=== PATIENT | male | born 1935 | race Caucasian/White ===

== ENCOUNTER → 2017-02-28 | Outpatient (CLI) | payer MEDICARE, BC ==
[~2017-02-28] MED LIST: ALBU.083IS IH; ALBU90OI; ALBU90OI61 INH; ALBUTEROL; ANTIBIOTIC; ASCO500; ASCO500 PO; ASPI81EC; ASPI81EC PO; AZIT250 PO; CHOL10002 PO; CIPR500 PO; CYCL10 PO; DEXA4 PO; ESOM20; FERR325 PO; FINA5 PO; FLUSAL2505; FLUSAL2505 IH; HYDR1TAB94 PO; METCAR750 PO; METPRE4 PO; METPRE4DP PO; MULVITMINF PO; OMEP20ER; OMEP20ER PO; RAMI2.5 PO; STEROID; TAMS.4ER PO; TIOT18; TIOT18 INH
[2017-02-28 16:54] LABS: Influenza A Negative (NEGATIVE); Influenza B Negative (NEGATIVE)
== END | disposition home or self-care (01) ==
LOC: LAB 16:13
DX: R05 Cough (principal); R06.2 Wheezing
CPT/HCPCS: 87804

== ENCOUNTER → 2018-08-04 | Outpatient (CLI) | payer MEDICARE, BC ==
[~2018-08-04] MED LIST changes: +ACET325 PO; +ATROPINE 0.01%-10 ML SL; +ATROPINE SULFATE2 ML SL; +CEFP200 PO; +Complete Senio1 EACH PO; +Culturelle1 CAP PO; +FERSU300 PO; -FLUSAL2505 IH; +FLUT1DIS5 INH; +Feverall650 MG PR; +Flonase 0.05% N16 GM; +Fruity C250 MG PO; +HALO2 PO; +IRON240 MG PO; +LORA2 PO; +OMEPRAZOLE20 MG PO; +ONDA4ODT MM; +PROM12.5S PR; +SANTYL30 GM TOP; +SENN187 PO; +Transderm-Scop1 EACH TD; +VITAMIN D31000 UNI2 PO
[2018-08-04 18:43] LABS: Bilirubin, Urine Neg (Neg); Blood, Urine 5+ (Neg); Glucose Qualitative, Urine Neg (Neg); Ketones, Urine 1+ (Neg); Leukocyte Esterase, Urine 1+ (Neg); Nitrite, Urine Neg (Neg); Protein, Urine 2+ (Neg); Specific Gravity, Urine 1.015 (1.003-1.022); Urobilinogen, Urine NORM (Normal); pH, Urine 6.5 (5.0-8.0)
[2018-08-04 18:56] LABS: Appearance, Urine Cloudy (Clear); Color, Urine Yellow (P-Yellow)
[2018-08-04 18:57] LABS: Bacteria Mod /hpf; Red Blood Cells, Urine TNTC /hpf (0-2); Squamous Epithelial Cells Rare /hpf (Few)
== END | disposition home or self-care (01) ==
LOC: LAB 17:44 → LAB SHORT 17:44
DX: R31.9 Hematuria, unspecified (principal)
CPT/HCPCS: 81001; 87086

== ENCOUNTER 2018-08-20 02:55 | Emergency (ER) | payer MEDICARE, BC ==
[~2018-08-20] VITALS: Ht 172.7 cm; Wt 49.9 kg
[~2018-08-20 02:55] MED LIST changes: -ACET325 PO; -ATROPINE 0.01%-10 ML SL; -ATROPINE SULFATE2 ML SL; -CEFP200 PO; -Complete Senio1 EACH PO; -Culturelle1 CAP PO; -FERSU300 PO; -Feverall650 MG PR; -Flonase 0.05% N16 GM; -Fruity C250 MG PO; -HALO2 PO; -IRON240 MG PO; -LORA2 PO; -OMEPRAZOLE20 MG PO; -ONDA4ODT MM; -PROM12.5S PR; -SANTYL30 GM TOP; -SENN187 PO; -Transderm-Scop1 EACH TD; -VITAMIN D31000 UNI2 PO
== END 2018-08-20 07:27 | disposition left against medical advice (07) ==
LOC: ER 02:55
DX: M25.551 Pain in right hip (principal); Z88.8 Allergy status to other drugs, medicaments and biological substances; Z79.899 Other long term (current) drug therapy; J44.9 Chronic obstructive pulmonary disease, unspecified; Z87.891 Personal history of nicotine dependence
CPT/HCPCS: 99283

== ENCOUNTER 2018-10-14 22:38 | Inpatient (IN) | payer MEDICARE, BC ==
[~2018-10-14] VITALS: Ht 185.4 cm; Wt 44.7 kg
[2018-10-14 23:30] LABS: BASOPHILS ABSOLUTE AUTO 0.05 K/mm3 (0.00-0.23); BASOPHILS PERCENT AUTO 0 % (0-2); EOSINOPHILS PERCENT AUTO 0 % (0-6); Hematocrit 33.2 % (37.0-53.0); Hemoglobin 10.9 g/dL (13.5-17.5); IMMATURE GRAN ABSOLUTE AUTO 0.18 K/mm3 (0.00-0.10); IMMATURE GRAN PERCENT AUTO 1 % (0-1); LYMPHOCYTES ABSOLUTE AUTO 0.61 K/mm3 (0.84-5.20); LYMPHOCYTES PERCENT AUTO 2 % (21-46); MONOCYTES PERCENT AUTO 9 % (4-13); Mean Corpuscular HGB 34.2 pg (26.0-34.0); Mean Corpuscular HGB Conc 32.8 g/dL (31.5-36.5); Mean Corpuscular Volume 104 fL (80-100); Mean Platelet Volume 10.4 fL (9.1-12.4); NEUTROPHILS ABSOLUTE AUTO 22.16 K/mm3 (1.96-9.15); NEUTROPHILS PERCENT AUTO 88 % (41-73); Platelet Count 335 K/mm3 (150-400); RDW Coefficient Variation 14.6 % (11.7-14.2); RDW Standard Deviation 55.5 fL (35.1-46.3); Red Blood Cell Count 3.19 M/mm3 (4.30-5.90)
[2018-10-14 23:44] LABS: Alanine Aminotransfer (ALT/SGP 27 U/L (12-78); Albumin, Blood 3.5 g/dL (3.4-5.0); Albumin/Globulin Ratio 0.9 (0.8-1.8); Alk Phos 62 U/L (50-136); Anion Gap 9 mmol/L (6-16); Aspartate Aminotrans (AST/SGOT 32 U/L (12-37); Bilirubin, Total 0.8 mg/dL (0.1-1.0); Blood Urea Nitrogen 25 mg/dL (8-24); Bun/Creatinine Ratio 30.2 (12.0-20.0); CO2, Blood 32 mmol/L (21-32); Calcium, Blood 9.1 mg/dL (8.5-10.1); Chloride, Blood 103 mmol/L (98-108); Creatinine, Blood 0.83 mg/dL (0.60-1.20); Glomerular Filtration Rate >60 (60-); Glucose, Blood 136 mg/dL (70-99); Potassium, Blood 4.2 mmol/L (3.5-5.5); Sodium, Blood 144 mmol/L (136-145); Total Protein, Blood 7.5 g/dL (6.4-8.2)
[2018-10-15 01:27] LABS: Source, Urine Clean Catch
[2018-10-15 01:30] LABS: Appearance, Urine Clear (Clear); Bilirubin, Urine Neg (Neg); Blood, Urine 5+ (Neg); Color, Urine Amber (P-Yellow); Glucose Qualitative, Urine Neg (Neg); Ketones, Urine 3+ (Neg); Leukocyte Esterase, Urine 1+ (Neg); Nitrite, Urine Neg (Neg); Protein, Urine 3+ (Neg); Specific Gravity, Urine 1.025 (1.003-1.022); Urobilinogen, Urine NORM (Normal)
[2018-10-15 01:38] LABS: Bacteria Mod /hpf; Red Blood Cells, Urine 50-100 /hpf (0-2); Squamous Epithelial Cells Few /hpf (Few)
[2018-10-15 01:39] LABS: Amorphous Light (0-Heavy)
[2018-10-15 04:42] LABS: Alanine Aminotransfer (ALT/SGP 21 U/L (12-78); Albumin, Blood 2.8 g/dL (3.4-5.0); Albumin/Globulin Ratio 0.8 (0.8-1.8); Alk Phos 49 U/L (50-136); Anion Gap 7 mmol/L (6-16); Aspartate Aminotrans (AST/SGOT 22 U/L (12-37); Bilirubin, Total 0.6 mg/dL (0.1-1.0); Blood Urea Nitrogen 23 mg/dL (8-24); Bun/Creatinine Ratio 31.7 (12.0-20.0); CO2, Blood 30 mmol/L (21-32); Calcium, Blood 7.8 mg/dL (8.5-10.1); Chloride, Blood 108 mmol/L (98-108); Creatinine, Blood 0.73 mg/dL (0.60-1.20); Globulin, Blood 3.3 g/dL (2.2-4.0); Glomerular Filtration Rate >60 (60-); Glucose, Blood 133 mg/dL (70-99); Potassium, Blood 3.9 mmol/L (3.5-5.5); Sodium, Blood 145 mmol/L (136-145); Total Protein, Blood 6.1 g/dL (6.4-8.2)
[2018-10-15 04:46] LABS: Prealbumin, Blood 7.6 mg/dL (20.0-40.0)
[2018-10-15 04:48] LABS: Percent Saturation 7.6 % (20.0-50.0)
[2018-10-16 04:47] LABS: Hematocrit 31.1 % (37.0-53.0); Hemoglobin 9.9 g/dL (13.5-17.5); Mean Corpuscular HGB 33.3 pg (26.0-34.0); Mean Corpuscular HGB Conc 31.8 g/dL (31.5-36.5); Mean Corpuscular Volume 105 fL (80-100); Mean Platelet Volume 10.2 fL (9.1-12.4); Platelet Count 259 K/mm3 (150-400); RDW Coefficient Variation 14.6 % (11.7-14.2); RDW Standard Deviation 56.7 fL (35.1-46.3); Red Blood Cell Count 2.97 M/mm3 (4.30-5.90)
[2018-10-16 05:02] LABS: Anion Gap 5 mmol/L (6-16); Blood Urea Nitrogen 13 mg/dL (8-24); Bun/Creatinine Ratio 26.9 (12.0-20.0); CO2, Blood 30 mmol/L (21-32); Calcium, Blood 8.2 mg/dL (8.5-10.1); Chloride, Blood 108 mmol/L (98-108); Creatinine, Blood 0.48 mg/dL (0.60-1.20); Glomerular Filtration Rate >60 (60-); Glucose, Blood 106 mg/dL (70-99); Potassium, Blood 3.5 mmol/L (3.5-5.5); Sodium, Blood 143 mmol/L (136-145)
[2018-10-16] MEDS ORDERED: ACET325 PO (14:39)
[2018-10-16] MEDS ORDERED: CEFP200 PO (14:40)
[2018-10-16] MEDS ORDERED: Culturelle1 CAP PO (14:41)
[2018-10-16] MEDS ORDERED: FERSU300 PO (14:41)
[2018-10-16] MEDS ORDERED: SENN187 PO (14:42)
[2018-10-16] MEDS ORDERED: SANTYL30 GM TOP (16:20)
== END 2018-10-16 17:46 | disposition home health service (06) | DRG 872 ==
LOC: ER 22:38 → MEDS 10-15 02:44
PROVIDERS: Emergency Medicine; Family Medicine; ADMIT Hospitalist
DX: A41.9 Sepsis, unspecified organism (principal); E44.1 Mild protein-calorie malnutrition; T74.01XA Adult neglect or abandonment, confirmed, initial encounter; R65.20 Severe sepsis without septic shock; J43.9 Emphysema, unspecified; F03.90 Unspecified dementia, unspecified severity, without behavioral disturbance, psychotic disturbance, mood disturbance, and anxiety; Z99.81 Dependence on supplemental oxygen; I10 Essential (primary) hypertension; Z87.891 Personal history of nicotine dependence; E86.0 Dehydration; D53.9 Nutritional anemia, unspecified
CPT/HCPCS: 36415; 71046; 80048; 80053; 81001; 82607; 82728; 82746; 83540; 83550; 83605; 84134; 84145; 84484; 85025; 85027; 87040; 87086; 93005; 93010; 94761; 96365; 96367; 97116; 97162; 97165; 97530; 99285-25; A9270; J0456; J0696; J1650; J2060; J7030; J7050

== ENCOUNTER 2018-10-17 19:50 | Observation (INO) | payer OTHER, MEDICARE, BC ==
[~2018-10-17] VITALS: Ht 167.6 cm; Wt 70.8 kg
[~2018-10-17 19:50] MED LIST changes: +ACET325 PO; +CEFP200 PO; +Culturelle1 CAP PO; +FERSU300 PO; +SANTYL30 GM TOP; +SENN187 PO
[2018-10-17 21:26] LABS: BASOPHILS ABSOLUTE AUTO 0.03 K/mm3 (0.00-0.23); BASOPHILS PERCENT AUTO 0 % (0-2); EOSINOPHILS ABSOLUTE AUTO 0.37 K/mm3 (0.00-0.68); EOSINOPHILS PERCENT AUTO 3 % (0-6); Hematocrit 28.8 % (37.0-53.0); Hemoglobin 9.3 g/dL (13.5-17.5); IMMATURE GRAN ABSOLUTE AUTO 0.04 K/mm3 (0.00-0.10); IMMATURE GRAN PERCENT AUTO 0 % (0-1); LYMPHOCYTES ABSOLUTE AUTO 1.41 K/mm3 (0.84-5.20); LYMPHOCYTES PERCENT AUTO 12 % (21-46); MONOCYTES ABSOLUTE AUTO 0.98 K/mm3 (0.16-1.47); MONOCYTES PERCENT AUTO 8 % (4-13); Mean Corpuscular HGB 34.4 pg (26.0-34.0); Mean Corpuscular HGB Conc 32.3 g/dL (31.5-36.5); Mean Corpuscular Volume 107 fL (80-100); Mean Platelet Volume 10.2 fL (9.1-12.4); NEUTROPHILS ABSOLUTE AUTO 8.92 K/mm3 (1.96-9.15); NEUTROPHILS PERCENT AUTO 76 % (41-73); Platelet Count 262 K/mm3 (150-400); RDW Coefficient Variation 14.6 % (11.7-14.2); RDW Standard Deviation 57.1 fL (35.1-46.3); White Blood Cell Count 11.75 K/mm3 (4.00-11.30)
[2018-10-17 21:40] LABS: Alanine Aminotransfer (ALT/SGP 26 U/L (12-78); Albumin, Blood 2.8 g/dL (3.4-5.0); Albumin/Globulin Ratio 0.8 (0.8-1.8); Alk Phos 58 U/L (50-136); Anion Gap 7 mmol/L (6-16); Aspartate Aminotrans (AST/SGOT 25 U/L (12-37); Bilirubin, Total 0.3 mg/dL (0.1-1.0); Blood Urea Nitrogen 10 mg/dL (8-24); Bun/Creatinine Ratio 18.2 (12.0-20.0); CO2, Blood 32 mmol/L (21-32); Calcium, Blood 8.2 mg/dL (8.5-10.1); Chloride, Blood 106 mmol/L (98-108); Creatinine, Blood 0.55 mg/dL (0.60-1.20); Globulin, Blood 3.3 g/dL (2.2-4.0); Glomerular Filtration Rate >60 (60-); Glucose, Blood 90 mg/dL (70-99); Potassium, Blood 3.5 mmol/L (3.5-5.5); Sodium, Blood 145 mmol/L (136-145); Total Protein, Blood 6.1 g/dL (6.4-8.2); Troponin I <0.015 ng/mL (0.000-0.040)
[2018-10-17 23:47] LABS: Source, Urine Clean Catch
[2018-10-17 23:52] LABS: Bilirubin, Urine Neg (Neg); Blood, Urine 2+ (Neg); Glucose Qualitative, Urine Neg (Neg); Ketones, Urine 4+ (Neg); Leukocyte Esterase, Urine Neg (Neg); Nitrite, Urine Neg (Neg); Protein, Urine Neg (Neg); Specific Gravity, Urine 1.015 (1.003-1.022); Urobilinogen, Urine NORM (Normal)
[2018-10-17 23:57] LABS: Appearance, Urine Clear (Clear); Color, Urine Yellow (P-Yellow)
[2018-10-17 23:58] LABS: Bacteria Mod /hpf; Mucus Light ({null, 0-Heavy}); Squamous Epithelial Cells Not Seen /hpf (Few)
[2018-10-18 05:13] LABS: BASOPHILS ABSOLUTE AUTO 0.02 K/mm3 (0.00-0.23); BASOPHILS PERCENT AUTO 0 % (0-2); EOSINOPHILS ABSOLUTE AUTO 0.21 K/mm3 (0.00-0.68); EOSINOPHILS PERCENT AUTO 3 % (0-6); Hematocrit 25.1 % (37.0-53.0); IMMATURE GRAN ABSOLUTE AUTO 0.03 K/mm3 (0.00-0.10); IMMATURE GRAN PERCENT AUTO 0 % (0-1); LYMPHOCYTES ABSOLUTE AUTO 0.91 K/mm3 (0.84-5.20); LYMPHOCYTES PERCENT AUTO 11 % (21-46); MONOCYTES ABSOLUTE AUTO 0.71 K/mm3 (0.16-1.47); MONOCYTES PERCENT AUTO 8 % (4-13); Mean Corpuscular HGB 33.6 pg (26.0-34.0); Mean Corpuscular HGB Conc 31.9 g/dL (31.5-36.5); Mean Corpuscular Volume 106 fL (80-100); Mean Platelet Volume 10.2 fL (9.1-12.4); NEUTROPHILS ABSOLUTE AUTO 6.61 K/mm3 (1.96-9.15); NEUTROPHILS PERCENT AUTO 78 % (41-73); Platelet Count 212 K/mm3 (150-400); RDW Coefficient Variation 14.5 % (11.7-14.2); RDW Standard Deviation 56.4 fL (35.1-46.3); Red Blood Cell Count 2.38 M/mm3 (4.30-5.90); White Blood Cell Count 8.49 K/mm3 (4.00-11.30)
--- NOTE | 2018-10-18 05:15 | NUR ---
SHIFT SUMMARY: PATIENT ARRIVED TO THE UNIT AT 0200 VIA GURNEY, ASSISTED WITH TRANSFER TO THE BED, USING SLIDER SHEET. HE IS ALERT AND ORIENTED TO SELF. HE IS ABLE TO LISTEN AND FOLLOW DIRECTIONS WHEN SPEAKING REAL SLOW AND ASKING PERMISSION. IF YOU ATTEMPT TO DO SOMETHING WITH OUT GETTING HIM TO CLEARLY UNDERSTAND WHAT IS HAPPENING HE TENDS TO GET COMBATIVE AND ANGRY. HE ALLOWED IV PLACEMENT, FLUIDS TO BE ADMINISTERED, LAB TO DRAW. BUT IF YOU GO TO CHANGE HIM, THIS HE DOES NOT LIKE. HE TENDS TO LAY ONLY ON HIS RIGHT SIDE AND DOES NOT LAY ON HIS BACK. HE IS ALWAYS IN POSITION. HE WAS RECENTLY DISCHARGED FROM THE HOSPTIAL TO THE GRANDDAUGHTERS HOME BUT SHE WAS NOT ABLE TO CARE FOR HIM HE WOULD DENY CARE PER MD NOTES. PATIENT ALLOWED STAFF TO TAKE PICTURES OF THE WOUNDS TO THE BILATERAL HIPS, AND ARMS. SEE CHART FOR DETAILS. ASSESSMENT WAS COMPLETED. LUNG SOUNDS ARE DIMINISHED WITH SOME WHEEZES THROUGHOUT. COUGH IS MOIST NON-PRODUCTIVE AT THIS TIME, IV STARTED TO THE LEFT UPPER ARM FOR POTASSIUM INFUSION, THIS WAS STARTED LATE DUE TO COMING TO THE FLOOR LATER THEN EXPECTED. ALSO INFUSING LR WITH AZYTHROMYCIN. ALL WOUNDS WERE DRESSED AND CLEANED. AFTER THAT HE WANTED TO SLEEP AND BE LEFT ALONE. THEREFORE, ALLOWED HIM TO SLEEP LAST COUPLE OF HOURS IN THE NIGHT. NO OTHER CHANGES WERE TO NOTE AT THIS TIME. WILL REPORT TO DAY SHIFT RN.
[2018-10-18 05:44] LABS: Anion Gap 4 mmol/L (6-16); Blood Urea Nitrogen 8 mg/dL (8-24); Bun/Creatinine Ratio 16.1 (12.0-20.0); CO2, Blood 32 mmol/L (21-32); Calcium, Blood 7.8 mg/dL (8.5-10.1); Chloride, Blood 107 mmol/L (98-108); Glomerular Filtration Rate >60 (60-); Glucose, Blood 80 mg/dL (70-99); Potassium, Blood 3.8 mmol/L (3.5-5.5); Sodium, Blood 143 mmol/L (136-145)
--- NOTE | 2018-10-18 09:50 | NUR ---
SPOKE WITH DR. BA AND GIBSON WITH PALLIATIVE CARE. THEY WILL ATTEMPT TO CONTACT FAMILY ABOUT CODE STATUS AND PLAN TODAY.
--- NOTE | 2018-10-18 14:32 | NUR ---
GIBSON Davenport RN TALKING WITH FAMILY AT BEDSIDE.
--- NOTE | 2018-10-18 15:46 | NUR ---
INITIAL [facility] VISIT/THIS ADMISSION PT IS AN 83 YEAR OLD MAN, DISCHARGED FROM THIS FACILITY AFTER STAY FOR TX OF SEPSIS, YESTERDAY. READMITTED JUST AFTER MIDNIGHT THIS AM. HE'S CARED FOR IN HIS HOME BY HIS GRANDDAU, LEEANNE AND ANOTHER FAMILY MEMBER WHEN SHE IS AT WORK. PT HAS HIS EYES CLOSED. HE WILL OPEN THEM AND LISTEN TO ME BUT DID NOT SPEAK OR PARTICIPATE IN THE CONVERSATION WHILE I SPOKE TO HIS GRANDCHILDREN FOR APPROX 20 MINUTES. LEEANNE AND A GRANDSON, SNEHA PRESENT FOR FAMILY MEETING. PT'S MARIANELA HERNANDEZ IS AT WORK UNTIL 6PM AND UNAVAILABLE. MELANIA KNOWN TO ME FROM PULMONARY REHAB. I WOULD NOT HAVE RECOGNIZED HIM FROM MY PRIOR CONTACT WITH HIM 2-3 YEARS AGO. PT IS CURLED UP ON RIGHT SIDE. HE'S CACHECTIC, FRAIL AND HAS A FULL STOKES AND LONG HAIR. HE HAS A FURROWED BROW AND SOMETIMES SQUEEZES HIS EYES CLOSED TIGHTLY. THE ONLY INDICATION OF PAIN NOTED IS HIS POSITION AND THE FURROWING OF HIS BROW. HE IS NOT MOANING, GROANING OR GRUNTING. RESP EVEN & UNLABORED. HE DOES NOT APPEAR RESTLESS/AGITATED AT THIS TIME. IT DOESN'T APPEAR THAT OUR CONVERSATION REGARDING HIS CODE STATUS AND WISHES, GOALS OF CARE, HOSPICE ETC ARE DISTURBING TO HIM. HE IS LYING QUIETLY, LISTENING. FAMILY WOULD LIKE TO CARE FOR HIM IN THE HOME WITH HOSPICE SUPPORT IF POSSIBLE. IF THEY CANNOT MANGE HIS CARE WITH THE ADDED HELP THEY WOULD CONSIDER PLACING HIM IN A GROUP HOME WITH HOSPICE CARE, FOR SAFETY. THEIR PRIMARY CONCERN IS HIS COMFORT AND PEACE OF MIND. AT ISSUE IS PT'S RELUCTANCE TO ALLOW PERSONAL CARE, HYGIENE AND FEEDING AT HOME. WE DISCUSSED PT'S RIGHT TO NOT EAT AND NOT BE FED IF THAT IS WHAT HE DESIRES. FAMILY AT PEACE WITH THIS AND UNDERSTAND THAT HIS QUALITY OF LIFE SINCE HIS HAS BEEN VERY POOR, ESPECIALLY RECENTLY WITH ACCELERATED PROGRESSION OF HIS DEMENTIA AND END STAGE LUNG DISEASE. CM UPDATED ON PLANS FOR D/C AND SHE CAME TO MEET WITH FAMILY TO COORDINATE DC HOME WITH HOSPICE. UPDATE GIVEN TO AND NEW ORDERS OBTAINED AND ENTERED. POLST FORM COMPLETED WITH FOREIGN FOR PT AND DISCUSSED WITH . POLST FORM LEFT AT DOOR FOR DR TO SIGN. WE WILL FAX TO MEDICAL RECORDS ONCE SIGNED. SNEHA AND LEEANNE STATE THEIR MOM IS IN SUPPORT OF HONORING PT'S WISHES. NON OF THEM WANT TO FORCE FEED OR ARTIFICIALLY FEED PT WITH G-TUBE IF HE CONTINUES TO DECLINE PO INTAKE. RN UPDATED ON CHANGES ALSO. CM WORKING WITH FAMILY WHEN I LEFT.
[2018-10-18] MEDS ORDERED: HALO2 PO (18:37)
[2018-10-18] MEDS ORDERED: ATROPINE 0.01%-10 ML SL (18:37)
[2018-10-18] MEDS ORDERED: ONDA4ODT MM (18:38)
[2018-10-18] MEDS ORDERED: LORA2 PO (18:38)
--- NOTE | 2018-10-18 20:06 | NUR ---
1944 PT AND FAMILY GIVEN DISCHARGE INSTRUCTIONS WITH GOOD UNDERSTANDING NOTED. PT CHANGED AND FRESH ATTENDS APPLIED PRIOR TO DISCHARGE. PT DISCHARGED TO CAR PER STAFF AND FAMILY AT SIDE VIA WHEELCHAIR WITH ALL PERSONAL BELONGINGS PLACED PERSONAL BAGS. PT ALERT AND ORIENTED X 1 AND ABLE TO FOLLOW VERY SIMPLE VERBAL COMMANDS. OLD WOUND DRESSINGS REMOVED FROM BILATERAL ARMS (SCABBED OVER AND LEFT OPEN TO AIR).
== END 2018-10-18 19:48 | disposition home or self-care (01) ==
LOC: ER 19:50 → MEDS 19:51
PROVIDERS: Emergency Medicine; Nurse Practitioner Acute Care; ADMIT Hospitalist
DX: F03.91 Unspecified dementia, unspecified severity, with behavioral disturbance (principal); A41.9 Sepsis, unspecified organism; R65.20 Severe sepsis without septic shock; G92 Toxic encephalopathy; L89.220 Pressure ulcer of left hip, unstageable; L89.210 Pressure ulcer of right hip, unstageable; D64.9 Anemia, unspecified; E44.0 Moderate protein-calorie malnutrition; J44.9 Chronic obstructive pulmonary disease, unspecified; R13.10 Dysphagia, unspecified; I10 Essential (primary) hypertension; J96.11 Chronic respiratory failure with hypoxia; Z99.81 Dependence on supplemental oxygen; Z88.8 Allergy status to other drugs, medicaments and biological substances; Z79.899 Other long term (current) drug therapy; W18.30XA Fall on same level, unspecified, initial encounter
CPT/HCPCS: 36415; 71045; 80048; 80053; 81001; 83605; 84145; 84484; 85025; 87086; 93005; 93010; 94640; 94760; 96361; 96365; 96366; 96367; 96368; 96372; 99285-25; G0378; J0456; J0696; J1650; J3480; J7030; J7050; J7120

== ENCOUNTER 2018-11-06 00:36 | Inpatient (IN) | payer MEDICARE, BC ==
[~2018-11-06] VITALS: Ht 170.2 cm; Wt 43.1 kg
[~2018-11-06 00:36] MED LIST changes: +ATROPINE 0.01%-10 ML SL; +HALO2 PO; +LORA2 PO; +ONDA4ODT MM
[2018-11-06 01:58] LABS: BASOPHILS ABSOLUTE AUTO 0.02 K/mm3 (0.00-0.23); BASOPHILS PERCENT AUTO 0 % (0-2); EOSINOPHILS ABSOLUTE AUTO 0.01 K/mm3 (0.00-0.68); EOSINOPHILS PERCENT AUTO 0 % (0-6); Hematocrit 33.6 % (37.0-53.0); Hemoglobin 10.8 g/dL (13.5-17.5); IMMATURE GRAN ABSOLUTE AUTO 0.14 K/mm3 (0.00-0.10); IMMATURE GRAN PERCENT AUTO 1 % (0-1); LYMPHOCYTES PERCENT AUTO 2 % (21-46); MONOCYTES ABSOLUTE AUTO 1.07 K/mm3 (0.16-1.47); MONOCYTES PERCENT AUTO 5 % (4-13); Mean Corpuscular HGB 34.4 pg (26.0-34.0); Mean Corpuscular HGB Conc 32.1 g/dL (31.5-36.5); Mean Corpuscular Volume 107 fL (80-100); Mean Platelet Volume 10.3 fL (9.1-12.4); NEUTROPHILS ABSOLUTE AUTO 18.98 K/mm3 (1.96-9.15); NEUTROPHILS PERCENT AUTO 92 % (41-73); NRBC ABSOLUTE 0.02 K/mm3 (0.00-0.02); NRBC Auto 0.1 /100 WBC (0.0-0.2); Platelet Count 345 K/mm3 (150-400); RDW Coefficient Variation 15.1 % (11.7-14.2); RDW Standard Deviation 58.6 fL (35.1-46.3); Red Blood Cell Count 3.14 M/mm3 (4.30-5.90); White Blood Cell Count 20.72 K/mm3 (4.00-11.30)
[2018-11-06 02:19] LABS: Alanine Aminotransfer (ALT/SGP 34 U/L (12-78); Albumin, Blood 2.7 g/dL (3.4-5.0); Albumin/Globulin Ratio 0.6 (0.8-1.8); Alk Phos 81 U/L (50-136); Anion Gap 10 mmol/L (6-16); Aspartate Aminotrans (AST/SGOT 36 U/L (12-37); Bilirubin, Total 0.9 mg/dL (0.1-1.0); Blood Urea Nitrogen 25 mg/dL (8-24); Bun/Creatinine Ratio 28.9 (12.0-20.0); CO2, Blood 31 mmol/L (21-32); Calcium, Blood 9.1 mg/dL (8.5-10.1); Chloride, Blood 99 mmol/L (98-108); Creatinine, Blood 0.87 mg/dL (0.60-1.20); Globulin, Blood 4.7 g/dL (2.2-4.0); Glomerular Filtration Rate >60 (60-); Glucose, Blood 177 mg/dL (70-99); Magnesium, Blood 2.6 mg/dL (1.6-2.4); Potassium, Blood 4.2 mmol/L (3.5-5.5); Sodium, Blood 140 mmol/L (136-145); Total Protein, Blood 7.4 g/dL (6.4-8.2); Troponin I 0.033 ng/mL (0.000-0.040)
[2018-11-06 05:23] LABS: BASOPHILS ABSOLUTE AUTO 0.02 K/mm3 (0.00-0.23); BASOPHILS PERCENT AUTO 0 % (0-2); EOSINOPHILS PERCENT AUTO 0 % (0-6); Hematocrit 25.7 % (37.0-53.0); Hemoglobin 8.3 g/dL (13.5-17.5); IMMATURE GRAN ABSOLUTE AUTO 0.12 K/mm3 (0.00-0.10); IMMATURE GRAN PERCENT AUTO 1 % (0-1); LYMPHOCYTES ABSOLUTE AUTO 0.43 K/mm3 (0.84-5.20); LYMPHOCYTES PERCENT AUTO 2 % (21-46); MONOCYTES ABSOLUTE AUTO 1.51 K/mm3 (0.16-1.47); MONOCYTES PERCENT AUTO 7 % (4-13); Mean Corpuscular HGB Conc 32.3 g/dL (31.5-36.5); Mean Corpuscular Volume 105 fL (80-100); Mean Platelet Volume 10.7 fL (9.1-12.4); NEUTROPHILS ABSOLUTE AUTO 18.65 K/mm3 (1.96-9.15); NEUTROPHILS PERCENT AUTO 90 % (41-73); Platelet Count 274 K/mm3 (150-400); RDW Coefficient Variation 15.2 % (11.7-14.2); Red Blood Cell Count 2.44 M/mm3 (4.30-5.90); White Blood Cell Count 20.73 K/mm3 (4.00-11.30)
[2018-11-06 05:46] LABS: Anion Gap 7 mmol/L (6-16); Blood Urea Nitrogen 27 mg/dL (8-24); CO2, Blood 31 mmol/L (21-32); Calcium, Blood 8.3 mg/dL (8.5-10.1); Chloride, Blood 104 mmol/L (98-108); Creatinine, Blood 0.77 mg/dL (0.60-1.20); Glomerular Filtration Rate >60 (60-); Glucose, Blood 121 mg/dL (70-99); Potassium, Blood 3.7 mmol/L (3.5-5.5); Sodium, Blood 142 mmol/L (136-145)
--- NOTE | 2018-11-06 10:27 | NUR ---
INITIAL PAL CARE VISIT - MEDICAL CLAIRE HERNANDEZMARIANELA [phone], PRIMARY CG WHERE PT LIVES IS LEEANNE HUERTA - [phone]. I HAVE LEFT VM MESSAGES FOR BOTH WITH REQUEST FOR RETURN CALL TO DISCUSS GOALS OF CARE. PT'S RN TO PAGE ME IF ANY FAMILY ARRIVE IN ICU#15 TO SEE PT. PLEASE SEE EXTENSIVE PAL CARE NOTE FROM PT'S LAST ADMISSION. THIS IS PT'S THIRD ADMISSION IN THE LAST 3-4 WEEKS. AFTER FIRST D/C IN SEPTEMBER HE RETURNED TO ER IN LESS THAN 24 HOURS BECAUSE "FAMILY COULD NOT CARE FOR HIM DUE TO PT'S REFUSAL TO ALLOW THEM TO CARE FOR HIM". AT MOST RECENT D/C ON 10/18/18, PT HAD PLANS FOR HOME CARE WITH GRAND HERNANDEZ, HOSPICE CARE AND IF LEEANNE WAS UNABLE TO MANAGE HOME CARE FAMILY STATED THEY WOULD CONSIDER PLACEMENT OF PT IN LTC FACILITY FOR EOL CARE. PT'S KPS SCORE IS CURRENTLY 20-30%. HE WOULD BE APPROPRIATE FOR COMFORT CARE AND HOSPICE CARE FOR END STAGE COPD AND DEMENTIA. HE RETURNED TO HOSPITAL TODAY AFTER ANOTHER FALL AND MORE SKIN TEARS INCURRED AT HOME. PRIMARY CG IS LEEANNE WHO WORKS. LEEANNE'S SO HELPS WHEN SHE IS WORKING PER LEEANNE ON LAST ADMISSION. I AM UNCERTAIN IF OTHER FAMILY MEMBERS HAVE ASSISTED OR ARE ABLE/WILLING TO ASSIST IN THE HOME. I CONTACTED [facility] WHO STATES THAT PT WAS A NONADMIT TO HOSPICE ON 10/22/18 PER FAMILY CHOICE. THEY TOLD HOSPICE STAFF THEY WERE NOT READY FOR HOSPICE AND PREFERRED FOR WOUND CARE, ETC, HOWEVER, PT WAS NEVER ADMITTED TO HH EITHER. PT'S DEANNA AND GRANDSON COMPLETED A POLST FOR PT BASED ON HIS PREVIOUSLY STATED WISHES ON THE LAST ADMISSION. THIS IS IN PT'S CHART AND STATES DNR/DNI, COMFORT MEASURES ONLY. PT ASSESSED AFTER HE WAS SETTLED INTO HIS ICU ROOM. HE IS QUIET, UNABLE TO SAY WHERE HE IS BUT KNOWS THAT WE ARE NOT ON THE ARCE. HE IS NONAMBULATORY DUE TO WEAKNESS AND EXTREMELY POOR BALANCE AND STRENGTH. HE IS CACHECTIC WITH MULTPLE SKIN TEARS AND WOUNDS. HE HAS LONG HAIR AND STOKES. FAMILY REPORT HE HAS NOT BEEN AMBULATORY FOR DAYS OR HAD PO INTAKE FOR DAYS. ON HIS LAST ADMISSION ST EVALUATED AND FOUND WITH IMPAIRED SWALLOW AND INABILTIY TO FOLLOW INSTRUCTIONS FOR SAFE SWALLOW. T/C TO UPDATE AMARIS GONZALEZ ON ALL OF THE ABOVE AND PLAN TO SPEAK WITH FAMILY TO CLARIFY GOALS AND PLAN OF CARE FOR PT'S END STAGE PROCESSES.
--- NOTE | 2018-11-06 11:34 | NUR ---
ADMIT NOTE PT REPORT RECEIVED FROM ER. PT ARRIVED VIA GURNEY AT @1000. PT ALERT, PALE AND SLEEPY. TRANSFERED TO NEW BED WITH SLIDER SHEET WITH 4 ASSIST. PT TOLERATED WELL. PT HANDS/LEGS DUSKY AND COLD. UNABLE TO OBTAIN A PULSE OX ON PT FINGERS. PLACED A FOREHEAD PROBE. MEASURED 100% ON 2L. CALLED GIBSON PEREZ IN PALATIVE CARE. LET HER KNOW THAT HE HAD RETURNED. PLACED A WARM BALNKET WHICH PT EXPRESSED APPRECIATION FOR. SR ON MONITOR. BP STABLE. IV ANTIBIOTICS STARTED PER ORDER. 1 IV IN RIGHT AC. STARTED WITH VANCOMYCIN THEN FLAGYL TO FOLLOW. CHARLINE CRYSTAL.
--- NOTE | 2018-11-06 13:08 | NUR ---
LOW BP PT BP DROPPED TO SBP 70'S. GIBSON PEREZ WAS HERE. SHE STATED SHE WOULD RETRY CALLING HIS DAUGHTER. CALLED DR GARY. ORDER FOR NS BOLUS 500ML RECEIVED. IVF RATE INCREASED TO 500 ML/HR. CONTINUE POT.
--- NOTE | 2018-11-06 15:24 | NUR ---
Pt's granddaughter, Gifty has arrived. Time spent updating her on Al's current status and discussing goals of care. RN also present and both of us provided support to Gifty. Her mom is on the way in and I will meet with both of them to discuss comfort care and answer their questions. Gifty is tearful and aware of pt's poor prognosis. Will return shortly when Daylin arrives.
--- NOTE | 2018-11-06 17:17 | NUR ---
NEARLY TWO HOURS SPENT TALKING WITH GRAND LEEANNE HERNANDEZ AND MARIANELA HERNANDEZ WHO HAVE ARRIVED. NEITHER ONE LISTENED TO THE VOICE MAIL MESSAGES I LEFT EARLIER. LEEANNE WAS HERE IN THE ER WITH PT UNITL VERY LATE AND MARIANELA HERNANDEZ STATES SHE'S BEEN AT WORK AT DOESN'T HAVE HER PHONE AT WORK. MARIANELA SMELLS OF ALCOHOL. DEANNA IS TEARFUL AND STRUGGLING WITH ANY DECISION TO MAKE PT COMFORT CARE AND MARY APPEARS UNABLE TO CONTRIBUTE TO THE DECISION MAKING IN ANY WAY. AFTER MANY CONVERSATIONS AND QUESTIONS ANSWERED BOTH STATE THEY WANT TO WAIT UNTIL SNEHA, PT'S GRANDSON IS AVAILABLE TO DISCUSS CARE PLAN WITH. MARIANELA AND LEEANNE CONFIRM THAT THEY DO NOT WANT CPR OR INTUBATION IF PT'S HEART/LUNGS FAIL BUT THEY WANT TO CONTINUE WITH IV FLUIDS AND IV ANTIBIOTICS AT THIS TIME. IF THEY ARE UNABLE TO REACH SNEHA THEY STATE THEY WILL COME TO A DECISION ON THEIR OWN. 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 HIS KPS SCORE IS APPROX 20% AT THIS TIME. HE HAS HAD DIFFICULTY SWALLOWING AND EATING FOR MONTHS, INCLUDING DIFFICULTY HANDLING HIS OWN SECRETIONS AT HOME PER GDAU. GDAU STATES THEY DID NOT DECLINE HOSPICE OR HH SERVICES BUT HOSPICE AGENCY SUGESSTED HH INSTEAD OF HOSPICE AND THEN COULD NOT SCHEDULE HIM. THEY FELT THEY WERE WAITING FOR THREE WEEKS FOR HELP THAT WAS PLANNED BUT DID NOT COME. [facility] CLEARLY NEEDS SUPPORT AND ASSIST FROM SALES AND SERVICE ADVISOR, TARA, RANGE MASTER IF PT IS ABLE TO RETURN HOME FOR EOL CARE. [facility] IS AWARE THAT PT MAY DECLINE FURTHER AND NOT BE ABLE TO RETURN HOME. ENCOURAGED FAMILY TO BE PRESENT FOR PT. HE IS INTERACTIVE IN MANY WAYS STILL. IF YOU HOLD HIS HAND, HE SQUEEZES AND HOLDS BACK. HE FOLLOWS VOICES WITH HIS EYES INTERMITTENTLY, RECOGNIZED HIS GRANDDAU AND ASKED WHEN HE WAS GOING HOME. HE DRIFTS OFF TO SLEEP BUT ROUSES EASILY. FINGER TIPS ARE MOTTLED AND FEET ARE ALSO DUSKY. BP FINALLY WNL THIS VASU BUT HAD BEEN RUNNING SYSTOLIC IN THE 70'S ALL AFTERNOON, EVEN WITH FLUID BOLUS OF 500 ML. PLAN TO F/U FIRST THING IN THE AM. FAMILY KNOWS IF A DECISION IS MADE TO PLACE PT ON COMFORT CARE THEY CAN LET THEIR RN KNOW AND SHE WILL NOTIFY . PT CONTINUES TO APPEAR COMFORTABLE, EVEN UNLABORED BREATHING WITH O2 ON, NO DISTRESS OR AGITATION NOTED TODAY.
--- NOTE | 2018-11-06 17:38 | NUR ---
Spiritual Care intial note: No family in room when visit occurred. RN was present with me at bedside. Mr. Mccord says little. He denies pain and appears comfortable. Assured pt of excellent care and attention. I will remain available to pt and family.
--- NOTE | 2018-11-06 17:50 | NUR ---
EVENINGNOTE PT RESTING QUIETLY.HE OPENS HIS EYES AND ANSWERS OCCSIONAL QUESTIONS. HE WILL WAVE AT TIMES. FINGERS COLD AND CYANOTIC. LEGS MOTTLED FROM TOES TO KNEES. SBP 70-104 MMHG. HR STABLE SR 70'S. PLACED AN EGG CRATE ON BED PRIOR TO TRANSFER FROM ER FOR PT COMFORT. HE MOANS AND CRIES OUT WHEN REPOSITIONED. WOUND PHOTOTS TAKEN AND PLACED IN HIS CHART. EXTENSIVE TALKS WITH GRAND DAUGHTER AND PT DAUGHTER HAVE TAKEN PLACE AROUND COMFORT CARE. NO FINAL DECISION HAS BEEN MADE CONCERNING COMFORT CARE. PT IS AN ACTIVE DNR STATUS. PURPLE WRIST BAND IS IN PLACE. CONTINUE POT.
--- NOTE | 2018-11-06 18:58 | NUR ---
WOUND CARE CHANGED PINK FOAM DRESSINGS TO BILATERAL HIPS AFTER TAKING DOCUMENTATION PHOTOS. DRESSING DATED AND TIMED. CONTINUE POT.
--- NOTE | 2018-11-06 20:00 | NUR ---
RECEIVED HAND OFF FROM Jim GARCIA, RN USING SBAR. LYING IN SEMI FOWLRES WITH EYES CLOSED. DAUGHTER, GRANDDAUGHTER, AND GRANDSON AT BEDSIDE. NURSING SPENT OVER AN HOUR AT BEDSIDE ANSWERING QUESTIONS FROM FAMILY. TUNG INFOMRED NURSING THAT PT WAS SENT HOME 6 WEEKS AGO WITH HOSPICE. ERYN, WHO IS PRIMARY BRICK TESTER STATED THAT HOSPICE NURSE WHO DID ADMIT ASSESSMENT STATED THAT PT DID NOT QUALIFY FOR HOSPICE AND THAT AN APPOINTMENT WOULD NEED TO BE MADE WITH A DR FOR HIM TO BE QUALIFIED AND A PHYSICIAN WOULD THEN HAVE TO REFER HIM FOR HOME HEALTH CARE. SHE STATED THAT HIS APPT WITH THE MD IS TOMORROW. SHE THEN MADE THE STATMENT, "I DON'T THINK HE IS GOING TO MAKE THAT APPOINTMENT." NURSING VOICED THAT HE WAS PROBABLY NOT. ERYN ALSO STATED THAT SHE FELT ABANDONEND, IF SHE WAS TRYING AND TRYING TO CARE FOR HIM, BUT NOT KNOWING IF SHE WAS DOING THE RIGHT THING. WHILE DISCUSSING PT'S WOUNDS BILATERALLY ON HIS HIPS, WHEN HE WAS DISCHARGED 2 WEEKS AGO HE WAS PRESCRIBED SANTYL. ERYN HAS BEEN APPLYING SANTYL TO THE ESCHAR BILATERALLY, BUT WAS TOLD IN THE ER TO STOP, THAT SHE WAS CAUSING HIM HARM. SHE WAS VERY UPSET ABOUT THIS BECAUSE SHE WAS FOLLOWING DIRECTIONS GIVEN TO HER BY D/C RN. SHE VOICED HER FRUSTRATIONS ABOUT NOT KNOWING WHAT IS BEST FOR PT. NURSING REVEIWED PT'S CONDITION AND HIS OUTLOOK WITH FAMILY. THEY ASKED IF HE WOULD BE ABLE TO GO HOME AND CONTINUE HIS JOURNEY, WHETHER IT WAS TO BE CARED FOR BY HOME HEALTH OR HOSPICE. GRANDSON ASKED IF HE COULD PASS PEACFULLY AT HOME IN HIS OWN BED. NURSING STATED THAT IS ALWAYS AN OPTION FOR THE PT TO COMPLETE HIS JOURNEY AT HOME SURROUNDED BY HIS LOVED ONES. FAMILY VERBALIZES UNDERSTANDING AND STATED THAT THEY WILL MAKE THEIR FINAL DECSION TOMORROW AFTER SEEING HOW HE RESPONDES TO TREATMENT TONIGHT. SHIFT ASSESSMENT IN PROGRESS. SAFETY MEASURES IN PLACE. WILL CONTINUE TO MONITOR.
[2018-11-07 03:26] LABS: BASOPHILS ABSOLUTE AUTO 0.01 K/mm3 (0.00-0.23); BASOPHILS PERCENT AUTO 0 % (0-2); EOSINOPHILS ABSOLUTE AUTO 0.09 K/mm3 (0.00-0.68); EOSINOPHILS PERCENT AUTO 1 % (0-6); Hematocrit 25.2 % (37.0-53.0); Hemoglobin 7.9 g/dL (13.5-17.5); IMMATURE GRAN ABSOLUTE AUTO 0.06 K/mm3 (0.00-0.10); IMMATURE GRAN PERCENT AUTO 0 % (0-1); LYMPHOCYTES ABSOLUTE AUTO 0.97 K/mm3 (0.84-5.20); LYMPHOCYTES PERCENT AUTO 7 % (21-46); MONOCYTES ABSOLUTE AUTO 0.91 K/mm3 (0.16-1.47); MONOCYTES PERCENT AUTO 7 % (4-13); Mean Corpuscular HGB 34.3 pg (26.0-34.0); Mean Corpuscular HGB Conc 31.3 g/dL (31.5-36.5); Mean Platelet Volume 10.5 fL (9.1-12.4); NEUTROPHILS ABSOLUTE AUTO 11.43 K/mm3 (1.96-9.15); NEUTROPHILS PERCENT AUTO 85 % (41-73); Platelet Count 256 K/mm3 (150-400); RDW Coefficient Variation 15.4 % (11.7-14.2); RDW Standard Deviation 61.6 fL (35.1-46.3); White Blood Cell Count 13.47 K/mm3 (4.00-11.30)
[2018-11-07 03:27] LABS: Mean Corpuscular Volume 110 fL (80-100)
[2018-11-07 03:43] LABS: Anion Gap 8 mmol/L (6-16); Blood Urea Nitrogen 20 mg/dL (8-24); Bun/Creatinine Ratio 35.3 (12.0-20.0); CO2, Blood 27 mmol/L (21-32); Calcium, Blood 7.9 mg/dL (8.5-10.1); Chloride, Blood 111 mmol/L (98-108); Creatinine, Blood 0.57 mg/dL (0.60-1.20); Glomerular Filtration Rate >60 (60-); Glucose, Blood 73 mg/dL (70-99); Phosphorus, Blood 2.3 mg/dL (2.5-4.9); Potassium, Blood 3.1 mmol/L (3.5-5.5); Sodium, Blood 146 mmol/L (136-145)
--- NOTE | 2018-11-07 06:46 | NUR ---
SHIFT SUMMARY LYING IN SEMI FOWLERS WITH EYES CLOSED. HAD BEEN DRY SINCE START OF SHIFT. WAS ABLE TO SATURATE DIAPER X1. LINEN AND GOWN CHANGE COMPLETED. BECAME VERY BELIGERANT AND COMBATIVE WHEN PERFORMING KIM CARE. KVO TO RIGHT FA PIV, TOLERATING WELL. REPOSITIONED FOR COMFORT. DENIES FURTHER NEEDS OR WANTS AT THIS TIME. SAFETY MEASURES IN PLACE. WILL GIVE HAND OFF TO ONCIOMING SHIFT USING SBAR.
--- NOTE | 2018-11-07 10:01 | NUR ---
ASSUMED CARE: REPORT RECEIVED FROM ZAID Lam RN. ASSUMED CARE OF THIS PT AT APPROX 0700. ON ASSESSMENT, THE PT IS RESTING QUIETLY. HE IS DIFFICULT TO WAKE AT TIMES & FOLLOWS COMMANDS ONLY INTERMITTENTLY WHEN AWAKE. HE DOES BECOME ANGRY W/ ADLs OR CARE BEING PERFORMED, SHAKING HIS FIST AT STAFF MEMBERS & USING PROFANITIES. PT ON 8L OXYMIZER W/ O2 SATS > 92%. MONITOR SHOWS SR W/ HR 70s, BP STABLE. PALLIATIVE CARE IS INVOLVED W/ THIS PT's CARE, FAMILY IS CONSIDERING POSSIBLE COMFORT CARE/ HOSPICE. WILL CONTINUE TO MONITOR & UPDATE NEEDED.
--- NOTE | 2018-11-07 10:14 | NUR ---
Pal care visit: Reviewed EMR. Case conferenced with pt's RN and Nsh Teacher, Diamond. No family in room during my visit. I have left VM with pt's Gifty becerril, with request for return call. Al lying supine with hob elevated. Forehead biox sensor in place. BP stable now. Respirations slightly labored with mouth breathing. O2 on via nc. Extremeties sl cool to touch but warmer than yesterday. RN reports pt with some agitation and shaking of his fist at her when she attempted to change his wet attends this am. Currently he is sleeping and did not wake to voice or tactile stimuli. He cont to appear fairly comfortable with no nonverbal indicators of grimacing, frowning, groaning or grunting noted. RN to page me if family arrives to visit. They indicated to staff yesterday pm that they would like to take pt home with hospice if possible. I need to confirm that with family and start planning with CM/Hospice if that is the case. Updated hospice care transitions coordinator of above.
--- NOTE | 2018-11-07 17:13 | NUR ---
SECOND PHONE CALL TO FAMILY TODAY TO FOLLOW UP ON GOALS/PLAN OF CARE DECIDED UPON. REACHED VENICE FALLON WHO IS ON HER WAY IN. AFTER SPEAKING WITH DR AND RN, GAVE LEEANNE AN UPDATE ON PT'S STATUS. HE IS STABLE BUT STILL EOL/TERMINAL. VENICE STATES FAMILY WOULD LIKE COMFORT CARE INITIATED AND HOSPICE CARE AT HOME IF IT IS POSSIBLE TO TRANSFER PT BACK HOME. PT WOULD NEED A SAME DAY EVAL/ADMIT TO HOSPICE AND GURNEY TRANSPORT HOME IF HE REMAINS STABLE FOR TRANSFER HOME. DISCUSSED PROBABLE DEHYDRATION AND FURTHER RESPIRATORY DECLINE WITH GRANDDAUGHTER. PT PERKED UP WITH LEEANNE'S VISIT AND ASKED FOR WATER AND SOMETHING TO EAT. I GAVE LEEANNE ICE CHIPS TO GIVE HIM AND HE WAS BROUGHT VANILLA YOGURT. GRANDDAUGHTER WAS INSTRUCTED THAT PT CAN EAT DRINK WHAT HE LIKES IF HE IS AWAKE AND REQUESTING BUT HOB MUST BE UP AND CAUTIONED THAT WITH BEST OF PRECAUTIONS HE WILL MOST LIKELY ASPIRATE SOME FOOD, FLUIDS, SECRETIONS FROM HERE ON OUT. PT HAS O2 ON WITH MAXIMIZER IN PLACE. HE DOES NOT APPEAR DYSPNIC OR IN DISTRESS. DISCOMFORT WITH SWALLOWING NOTED. DISCUSSED MOVE TO MEDICAL FLOOR WITH LEEANNE. SHE IS WORKING TOMORROW BUT WILL BE HERE EARLY IN THE DAY TO WORK WITH CARE MANAGERS AND HOSPICE FOR PLANNING. SHE HAS TO BE AT WORK AT 430 PM. PT IS CLEARLY HAPPY TO HAVE HIS GRANDAUGHTER IN THE ROOM AND TENDING TO HIM. RN GIVING VENICE INSTRUCTIONS ON USE OF TOOTHETTE FOR CHECKING FOR POCKETING AND POOLING OF FOOD IN MOUTH. LEEANNE AWARE THAT IF PT DECLINES RAPIDLY AND ACTIVELY PROGRESSES WITH DYING PROCESS IN NEXT 24 HOURS THAT HE MAY NOT LEAVE HOSPITAL. PAL CARE TO FOLLOW DAILY.
--- NOTE | 2018-11-07 17:23 | NUR ---
SHIFT SUMMARY / COMFORT CARE: NO ACUTE CHANGES IN PT CONDITION THIS SHIFT. HE REMAINS CONFUSED BUT REDIRECTABLE IN MOST CASES. HE CONTINUES RESISTING CARE & SHAKING HIS FIST AT STAFF WHEN ATTEMPTS TO PERFORM ADLs ARE MADE. FAMILY HAS BEEN UPDATED ON PT's CONDITION & THAT HE HAS MADE NO PROGRESS AT THIS TIME. THEY FEEL THAT COMFORT CARE IS THE BEST OPTION & TRIPP Davenport, PALLIATIVE CARE RN, HAS BEEN IN COORDINATION W/ FAMILY TO GET THIS ARRANGED & ORDERS HAVE BEEN PLACED W/ DR GARY's APPROVAL. PT IS NOW MEDICAL STATUS. GRANDDAUGHTER AT BEDSIDE. WILL CONTINUE TO MONITOR & REPORT OFF TO ONCOMING RN.
--- NOTE | 2018-11-08 05:20 | NUR ---
PRESS TENDER STAR SIGNAL SUMMARY PT TRANSFERED FROM ICU AT START OF SHIFT. PT AAOX1 AND VERY CONFUSED. PT ON COMFORT CARE MEASURES. DAUGHTER AND GRAND DAUGHTER AT BEDSIDE AT START OF SHIFT. PT MINIMALLY VERBAL. GETS VERY IRRITABLE WITH TURNS AND CHANGES. ATTEMPTS TO HIT STAFF BUT IS VERY WEAK. WILL CONTINUE TO PROVIDE COMFORT MEASURES AND MONITOR PT UNTIL DAY SHIFT RN ASSUMES CARE.
[2018-11-08] MEDS ORDERED: OMEPRAZOLE20 MG PO (14:33)
[2018-11-08] MEDS ORDERED: TIOT18 INH (14:34)
[2018-11-08] MEDS ORDERED: Fruity C250 MG PO (14:35)
[2018-11-08] MEDS ORDERED: RAMI2.5 PO (14:36)
[2018-11-08] MEDS ORDERED: VITAMIN D31000 UNI2 PO (14:36)
[2018-11-08] MEDS ORDERED: IRON240 MG PO (14:38)
[2018-11-08] MEDS ORDERED: Complete Senio1 EACH PO (14:38)
[2018-11-08] MEDS ORDERED: Flonase 0.05% N16 GM (14:39)
[2018-11-08] MEDS ORDERED: TAMS.4ER PO (14:39)
--- NOTE | 2018-11-08 18:35 | NUR ---
Spiritual Care note: Mr. Mccord was alone in room. He did not awaken. He appears comfortable and well cared-for by nursing. Prayer provided at bedside. Welding Machine Operator Resistance Services will remain available.
--- NOTE | 2018-11-08 19:44 | NUR ---
SHIFT SUMMARY PT SLEEPING MOST OF THE TIME. GRANDDAUGHTER AT BEDSIDE FOR A SHORT TIME THIS AFTERNOON. REDUCED O2 TO 5L/M. NO RESP DISTRESS NOTED A RESULT. REQUESTING FLUIDS FREQUENTLY WITH OCC COUGH NOTED WITH DRINKING. OBJECTED TO MOST CARE GIVEN. WOUNDS WITH NO DRAINAGE NOTED.
--- NOTE | 2018-11-08 22:47 | NUR ---
Pt refused any repositioning and comfort care at this time.
--- NOTE | 2018-11-09 06:29 | NUR ---
Shift Summary: Pt remained in bed throughout the night. Denied pain each time he was asked, did not appear to be experiencing pain. Continued on oxymizer at 5l. Resps regular, non-labored, no SOB. Patel cath patent and draining dark colored urine. Pt requested fluids as desired. No coughing noted. Discovered pt pulling at patel cath. RN was able to convince patient to let go of cath. Not observed pulling since. Slept minimally throughout the night. No acute changes.
--- NOTE | 2018-11-09 13:27 | NUR ---
Pt visit this afternoon. Pt is resting in bed with his eyes closed. Offered gentle voice twice with no response. Pt remains with his eyes closed and appears comfortable with no S/S of distress at this time. Spoke with bedside nurse Guera and discussed case. No concerns reported at this time. Palliative Care will remain available.
--- NOTE | 2018-11-09 17:23 | NUR ---
SHIFT SUMMARY POSITIONED FOR COMFORT. WOUNDS TO BODY WITH NO DRAINAGE AND SOME WITH SCABS INTACT. GIVEN LIQUIDS WHEN REQUESTED WITH OCC COUGH NOTED. NO S/S OF RESP DISTRESS OR PAIN THROUGH DAY. POSSIBLE DISCHARGE HOME ON HOSPICE TOMORROW.
--- NOTE | 2018-11-09 18:09 | NUR ---
TOOK OVER CARE OF PATIENT FROM LAURI. PT LYING IN BED, EYES CLOSED, APPEARS TO BE RESTING. BREATHING IS EVEN, UNLABORED. NO APPARENT SIGNS OF DISTRESS. CALL LIGHT IS IN REACH.
--- NOTE | 2018-11-10 01:32 | NUR ---
Comfort care interventions: Repositioned pt. Changed brief and alana. Yaritza care performed. Bandages on bony prominences changed. Bandages placed on bilateral heels.
--- NOTE | 2018-11-10 05:38 | NUR ---
SHIFT SUMMARY: Family at bedside at the beginning of the night. 3 assist during night time cares- completed kina care and changed pressure sore bandages on bony prominences. Pt was combative and attempted to hit staff, verbal aggression. Required hands being held to prevent staff from being hit. Has slept through the night since. Oxymizer on all night at 5.5L. Resps regular, non-labored. Occasional wet suonding, non-productive, weak cough. Mottling visible in finger tips and toes. Jarrell cath in place and draining dark kaylah colored urine.
[2018-11-10] MEDS ORDERED: ATROPINE SULFATE2 ML SL (10:09)
[2018-11-10] MEDS ORDERED: HALO2 PO (10:10)
[2018-11-10] MEDS ORDERED: LORA2 PO (10:11)
[2018-11-10] MEDS ORDERED: PROM12.5S PR (10:12)
[2018-11-10] MEDS ORDERED: Transderm-Scop1 EACH TD (10:14)
[2018-11-10] MEDS ORDERED: SENN187 PO (10:16)
[2018-11-10] MEDS ORDERED: Feverall650 MG PR (10:21)
--- NOTE | 2018-11-10 11:21 | NUR ---
HOSPICE UNAVAILABLE UNTIL TOMORROW DISCHARGE PLANNING INFORMS ME THAT HOSPICE IS UNAVAILABLE UNTIL TOMORROW. DISCHARGE PAPERWORK HAS BEEN COMPLETED. MEDICATIONS HAVE BEEN FAXED TO PHARMACY. PLAN IS FOR [facility] TO TRANSPORT PT HOME TOMORROW VIA [facility] W/O2 SUPPLEMENTATION.
--- NOTE | 2018-11-10 16:02 | NUR ---
SHIFT SUMMARY PT NON-VERBAL MOSTLY. HE IS ABLE TO DRINK CLEAR ENSURES. I DID TURN UP THE HEAT IN HIS ROOM HIS SKIN FELT COLD ON PALPATION. PLAN IS FOR DC TOMORROW ON HOSPICE. CARE MANAGEMENT IS MAKING THOSE ARRANGEMENTS. Q 2 TURNS. NO OTHER CHANGES. PT DID NOT SHOW NON-VERBAL OR VERBAL INDICATORS OF PAIN.
--- NOTE | 2018-11-11 06:47 | NUR ---
PT REMAINS ON COMFORT CARE. HAS SLEPT AT INTERVALS THIS SHIFT, REFUSED TO ALLOW STAFF TO REPOSITION HIM AND ANY MEDICATIONS. RESTING QUIETLY AT THIS TIME.
--- NOTE | 2018-11-11 10:12 | NUR ---
PAL CARE COMFORT CARE VISIT MADE: NO VISITORS IN THE ROOM THIS AM. TIME SPENT TALKING, SOOTHING PT. HE IS AWAKE AND LOOKING AROUND. UNABLE TO RESPOND AND CONVERSE IN UNDERSTANDABLE SPEECH. HE SHAKES HIS HEAD NO, WHEN ASKED IF HE IS HURTING. O2 IN PLACE WITH NASAL PILLOW/MAXIMIZER CANULA. ATTENDS ARE WET. MULTIPLE WOUNDS WITH DRESSINTS INTACT. REVIEW OF EMR SHOWS PLANS FOR TRANSFER HOME TODAY WITH [facility], ARRANGED YESTERDAY BY CM. PT TRYING TO TALK BUT SPEECH IS GARBLED. FOUL WORDS CLEARLY UNDERSTOOD. OBTAINED HELP TO REPOSITION PT IN BED HIS FEET WERE AGAINST FOOT BOARD. WE WERE DOING POSITION CHANGE HE VERY QUICKLY STRUCK OUT AT RN WHO CAME IN TO HELP ME. PT IS MUCH MORE AWAKE AND STRONGER THAN WHEN I SAW HIM LAST IN ICU FOUR DAYS AGO. OPEN JUICE CONTAINER IS ON OB TABLE. LINER ASSEMBLER MADE AWARE OF PERSONAL CARE NEEDS AT THIS TIME.
--- NOTE | 2018-11-11 11:00 | NUR ---
CALLED DR. PEDROZA VERIFIED THAT WE WERE LEAVING THE [place] IN PLACE FOR PT TO DISCHARGE ON HOSPICE. SHE CONFIRMED THAT IT WAS TO BE LEFT IN
--- NOTE | 2018-11-11 13:22 | NUR ---
CALLED GRANDAUGHTER/CAREGIVER LEFT MESSAGE. I KNOW THAT CARE MANAGEMENT DISCUSSED THE PLAN WITH LEEANNE YESTERDAY FOR THE PT TO COME HOME TODAY ON HOSPICE AT 13:30 HRS. I DID CONFIRM THAT THE PLAN IS UNCHANGED TODAY. I WAS GIVEN IN REPORT THAT LEEANNE'S BOYFRIEND TYPICALLY CARES FOR THE PT WHILE LEEANNE WORKS HER OTHER JOB. I ALSO PHONED THE DAUGHTER ZOILA AND LEFT A MESSAGE WELL.
--- NOTE | 2018-11-11 13:47 | NUR ---
DISCHARGE NOTE I CALLED FAMILY. I DID LEAVE MESSAGES. THEY WERE AWARE OF THE DISCHARGE PLAN FOR TODAY (SEE PARTS PULLER'S NOTES). TRANSPORT ARRIVED WITH A GURNEY AND O2 TO TRANSPORT THE PT HOME. [facility] IS INFORMED AND READY. PERSONAL POSSESSIONS GATHERED AND SENT WITH PT. DISCHARGE PAPERWORK SENT WITH PT. INCLUDING ONE PRESCRIPTION (HARDCOPY) FOR ROXANOL. PAPERWORK GIVEN TO TRANSPORT WELL.
== END 2018-11-11 13:44 | disposition home or self-care (01) | DRG 871 ==
LOC: DELPENDDIS → ER 00:36 → ERHOLD 03:19 → ICUW 09:31 → MEDS 11-07 19:05 → ENPENDDIS 11-10 09:11 → MEDS 11-11 13:44
PROVIDERS: Emergency Medicine; Family Medicine; ADMIT Hospitalist
DX: A41.9 Sepsis, unspecified organism (principal); L89.223 Pressure ulcer of left hip, stage 3; L89.213 Pressure ulcer of right hip, stage 3; J69.0 Pneumonitis due to inhalation of food and vomit; R65.21 Severe sepsis with septic shock; E87.2 Acidosis; R64 Cachexia; Z68.1 Body mass index [BMI] 19.9 or less, adult; E46 Unspecified protein-calorie malnutrition; Z51.5 Encounter for palliative care; J44.9 Chronic obstructive pulmonary disease, unspecified; Z99.81 Dependence on supplemental oxygen; Z87.891 Personal history of nicotine dependence; D53.9 Nutritional anemia, unspecified; W18.11XA Fall from or off toilet without subsequent striking against object, initial encounter; Y93.9 Activity, unspecified; Y92.9 Unspecified place or not applicable; S41.011A Laceration without foreign body of right shoulder, initial encounter; S51.011A Laceration without foreign body of right elbow, initial encounter
CPT/HCPCS: 36415; 51702; 71045; 80048; 80053; 80069; 82607; 82728; 82746; 83540; 83550; 83605; 83690; 83735; 83880; 84145; 84484; 85025; 87040; 92610; 93005; 93010; 94760; 96361; 96365; 96367; 96372-59; 99285-25; J0456; J0696; J1650; J3370; J7030; J7050; J7060; J7120